=== PATIENT | male | born 1995 | race Caucasian/White ===

== ENCOUNTER 2021-08-15 21:30 | Emergency (ER) | payer SELFPAY ==
[2021-08-15 21:52] VITALS: BP 115/81; PULSE 79; TEMP 98.8; BMI 24.0
== END 2021-08-15 22:12 | disposition home or self-care (01) ==
LOC: FER 21:30
PROC: 0HQ1XZZ Repair Face Skin, External Approach (ICD-10-PCS; principal; 2021-08-15)
DX: S01.112A Laceration without foreign body of left eyelid and periocular area, initial encounter (principal); W22.8XXA Striking against or struck by other objects, initial encounter
CPT/HCPCS: 99282-25